=== PATIENT | female | born 1955 | race Caucasian/White ===

== ENCOUNTER 2019-03-17 04:48 | Inpatient (IN) ==
--- NOTE | 2019-02-17 08:00 | History & Physical Report ---
Date of Service February 17, 2019 Date of Surgery: 03-17-19 Assessment & Plan (1) Arthritis of knee, right: Risks and benefits of procedure discussed in detail today, patient would like to proceed with a Right total knee replacement at [facility] as scheduled. will obtain medical clearance prior to surgery as well as obtain PATs at [facility]. Will place on ASA 81mg po bid x 1 month post op, f/u 2 weeks post op for routine post-operative care and x-ray, sooner if having any problems. will make arrangements for HHPT at the time of discharge. At this point in time, has failed conservative measures and would like to proceed with surgical intervention. History of Present Illness Chief Complaint: right knee pain Primary Care Provider: NO PCP Ms Espinal is a 64 year old female who complains of right knee pain, presents for pre-op evaluation prior to a right total knee replacement at [facility]. She presents with pain, crepitus, decreased range of motion, stiffness and instability on the right side. She states that the symptoms have been chronic non-traumatic. The symptoms occur constantly with intermittent worsening. Currently the patient states that the symptoms are moderate-severe. The pain is described as aching and sharp. The symptoms occur continuously. She rates her worst pain as 8/10. She rates her current pain as 4/10. The symptoms are aggravated by repetitive activities and walking. Lavonne states that the symptoms are relieved by no specific activity. In addition to right knee pain the patient is also experiencing difficulty bending, limping and difficulty going to sleep. Patient is taking Meloxicam. She has been treated with a corticosteroid injection on the right side. she has also undergone previous visco series. she has had previous arthroscopic surgery. Pt had a partial menisectomy surgery by Dr. Sumner 2011 in her Right knee. Allergies Allergy/AdvReac Type Severity Reaction Status Date / Time naproxen [From Aleve] Allergy Rash Verified 02/09/19 10:45 Home Medications Home Medications Medication Instructions Recorded Confirmed Type cholecalciferol (vitamin D3) 1,000 unit PO QAM 02/09/19 02/09/19 History [Vitamin D3] coenzyme Q10 [CoQ-10] 100 mg PO QAM 02/09/19 02/09/19 History estradiol 1 packet TRANSDERMAL DAILY 02/09/19 02/09/19 History furosemide 40 mg PO DAILY PRN 02/09/19 02/09/19 History magnesium 250 mg PO QPM 02/09/19 02/09/19 History meloxicam 15 mg PO DAILY PRN 02/09/19 02/09/19 History omeprazole 20 mg PO DAILY PRN 02/09/19 02/09/19 History red yeast rice 1,200 mg PO QAM 02/09/19 02/09/19 History Past Med/Surg History Medical History History of palpitations PT STATES SHE RECENTLY FELT THOUGH HER HEART WAS "RACING OR SKIPPING A BEAT", WAS SEEN AND EVALUATED BY PCP, HAD EKG AND HOLTER MONITOR (BOTH NEGATIVE), PT WILL HAVE ECHO DONE AT [facility] WK OF 02/09/19 PART OF WORK UP. NO RECENT ISSUES. DENIES ANY TRIGGER FOR THIS, NO OTHER SYMPTOMS. Nausea and vomiting after administration of anesthetic agent Osteoarthritis Surgical History History of arthroscopy KNEE SCOPE FOR MENISCUS History of bilateral tubal ligation History of colonoscopy History of esophagogastroduodenoscopy (EGD) History of left oophorectomy History of tonsillectomy Family History Unknown Diabetes Hypertension Social History Preferred Language: Pakistani Communication Ability: Effective Watchmaker Apprentice Required: No Beliefs That Will Affect Care: None Current Living Situation: Spouse Other Information That Helps Us Care for You: No Feels Safe at Home: Yes Safety Concerns: Feels Safe At This Time Smoking Status: Never smoker Cigarettes Per Day: 0 Do You Dip or Chew Tobacco: No Second Hand Exposure: No Tobacco Cessation Education Requested by Patient: No Hx Alcohol Use: No Hx Substance Use: No Review of Systems Review of Systems: All systems reviewed & are unremarkable except as noted in HPI & below Constitutional: no fever, no chills and no sweats Respiratory: no cough and no dyspnea Cardiovascular: no chest pain, no dyspnea and no orthopnea Gastrointestinal: no abdominal pain, no nausea and no vomiting Musculoskeletal: as per Subjective / HPI Physical Exam Physical Exam: Ht: 5ft 8in Wt: 106.6kg BP: 134/76 Pulse: 72 Constitutional: WD/WN, vitals as above no acute distress Respiratory: normal respiratory effort, lungs clear to auscultation no respiratory distress, no labored breathing and does not use accessory muscles Cardiovascular: RRR, no murmur, no edema Gastrointestinal (Abdomen): normal bowel sounds, soft, nontender, no hepatosplenomegaly Musculoskeletal: Right Knee Exam she ambulates with a limp, overall she has valgus alignment, no erythema or ecchymosis, mild effusion, diffuse tenderness to the knee, mild crepitation with motion, rai's negative, Aurora's - lateral positive, Aurora's - medial positive, Posterior drawer- negative, anterior drawer negative, valgus stress negative, varus stress negative, no extensor lag, pain with active range of motion, less pain with passive painful ROM, Range of motion 0/3/110. No pain with active/passive ROM of ankle. Lower extremity strength normal. Lower extremity neuro-vascular is normal Results & Data Diagnostic Findings Radiographs from 01-12-19 showing advanced DJD right knee with complete loss of joint space lateral compartment and patellofemoral joint, showing joint space narrowing osteophyte formation, subchondral sclerosis, overall valgus alignment. no loose bodies.
--- NOTE | 2019-02-17 12:38 | PAT Medication Instructions ---
Medication Instructions Date of Service February 17, 2019 Home Medications cholecalciferol (vitamin D3) 1,000 unit PO QAM coenzyme Q10 [CoQ-10] 100 mg PO QAM estradiol 1 packet TRANSDERMAL DAILY furosemide 40 mg PO DAILY PRN magnesium 250 mg PO QPM meloxicam 15 mg PO DAILY PRN omeprazole 20 mg PO DAILY PRN red yeast rice 1,200 mg PO QAM Continue as directed estradiol 1 packet TRANSDERMAL DAILY (avoid placement near surgical site) ASK your surgeon for instructions meloxicam 15 mg PO DAILY PRN STOP taking 2 weeks before surgery coenzyme Q10 [CoQ-10] 100 mg PO QAM red yeast rice 1,200 mg PO QAM DO NOT take the morning of surgery cholecalciferol (vitamin D3) 1,000 unit PO QAM furosemide 40 mg PO DAILY PRN Take morning of surgery With a small sip of water, OTHERWISE NOTHING TO EAT OR DRINK AFTER MIDNIGHT: omeprazole 20 mg PO DAILY PRN (if needed) Take evening before surgery furosemide 40 mg PO DAILY PRN (if needed) magnesium 250 mg PO QPM omeprazole 20 mg PO DAILY PRN (if needed) Other Notes If you have any questions please call us at [phone] or [phone] or [phone] or [phone]
--- NOTE | 2019-02-17 12:54 | Anesthesiology Consultation ---
Date of Service February 17, 2019 Assessment & Plan (1) Encounter for pre-operative examination: PCP CLEARANCE 02/25 = she is considered to be medically acceptable for planned surgery. Chart Review Chart Review: Acceptable Risk for Surgery and Patient seen in Pre Admission Testing Teaching & Discussion Instructed NPO after midnight before surgery, except medications with 15 cc of water. Medication instructions provided according to the PAT guidelines. History Surgery Operation Date: 03/17/19 07:15 Proposed Procedures p Right Total Knee Arthroplasty - Todd Younger DO Height/Weight Height: 5 ft 8 in Weight: 110.6 kg Allergies Allergy/AdvReac Type Severity Reaction Status Date / Time naproxen [From Aleve] Allergy Rash Verified 02/09/19 10:45 Medications Home Medications Medication Instructions Recorded Confirmed Last Taken cholecalciferol (vitamin D3) 1,000 unit PO QAM 02/09/19 02/09/19 Unknown [Vitamin D3] coenzyme Q10 [CoQ-10] 100 mg PO QAM 02/09/19 02/09/19 Unknown estradiol 1 packet TRANSDERMAL DAILY 02/09/19 02/09/19 Unknown furosemide 40 mg PO DAILY PRN 02/09/19 02/09/19 Unknown magnesium 250 mg PO QPM 02/09/19 02/09/19 Unknown meloxicam 15 mg PO DAILY PRN 02/09/19 02/09/19 Unknown omeprazole 20 mg PO DAILY PRN 02/09/19 02/09/19 Unknown red yeast rice 1,200 mg PO QAM 02/09/19 02/09/19 Unknown Past Medical History Medical History History of palpitations EVALUATED BY PCP, EKG/HOLTER MONITOR/ECHO ALL UNREMARKABLE Nausea and vomiting after administration of anesthetic agent Obesity Osteoarthritis Exercise / Class Metabolic Activity II 4-5 Yardwork/Stairs/Walk up hill (Denies CP or SOB with stairs, does daily) Past Family History Family History Unknown Diabetes Hypertension Past Surgical History Surgical History History of arthroscopy KNEE SCOPE FOR MENISCUS History of bilateral tubal ligation History of colonoscopy History of esophagogastroduodenoscopy (EGD) History of left oophorectomy History of tonsillectomy Past Anesthesia History No Hx of Anesthesia Complications (other than PONV) and No Family Hx of Anest hesia Complications History of PONV No Hx of Motion Sickness and History of PONV (has not had with mroe recent surgeries) Social History Smoking Status: Never smoker Smoking cigarettes per day: 0 Do You Dip or Chew Tobacco: No Hx Alcohol Use: No Alcohol type: other Alcohol Intake Frequency Comment: 0 Hx Substance Use: No substance use type: does not use Review of Systems * Pt denies any recent chest pain, shortness of breath, cough, fever or URI. +palpitations, being worked up by PCP Physical Exam Vital Signs BP: 137/78 P: 71bpm SPO2: 96% RA T: 98.8 F R: 16 ENMT Mouth: no dental restorations, no chipped teeth and no loose teeth Thyromental Distance: > or= 3.5 Finger Breadths (4) Mallampati Class: I Neck normal visual inspection; neck extension not limited Respiratory normal respiratory effort Auscultation: lungs clear to auscultation bilaterally Cardiovascular Rate/Rhythm: regular rate and regular rhythm Heart Sounds: no murmur Vessels: no carotid bruit Testing Laboratory Results 02/17/19 13:06 02/17/19 13:06 02/17/19 02/17/19 02/17/19 13:06 13:06 13:06 PT 10.4 INR 1.0 APTT 26.3 Hemoglobin A1c 5.7 H Urine Color Urine Appearance Urine pH Ur Specific [place] Urine Protein Urine Glucose (UA) Urine Ketones Urine Nitrite Ur Leukocyte Esterase Blood Type B Positive Antibody Screen NEGATIVE 02/17/19 13:06 PT INR APTT Hemoglobin A1c Urine Color Yellow Urine Appearance Clear Urine pH 5.5 Ur Specific [place] 1.016 Urine Protein Negative Urine Glucose (UA) Negative Urine Ketones Negative Urine Nitrite Negative Ur Leukocyte Esterase Negative Blood Type Antibody Screen Electrocardiogram Date: 11/19/18 Findings: + NSR @ (75) Chest X-Ray Date: 02/17/19 Findings: + NAD Echocardiogram Date: 02/11/19 EF: 63% The left ventricle size is normal. No significant valvular disease.
--- NOTE | 2019-02-17 13:31 | XRay Report ---
XR chest Pre-admission PA/Lat CLINICAL HISTORY: pat preoperative evaluation COMPARISON STUDY: No previous studies for comparison. FINDINGS: The bones soft tissues and hemidiaphragms are normal. The cardiomediastinal silhouette is n ormal. The lungs are clear. The pulmonary vasculature is normal. IMPRESSION: Negative chest. The above report was generated using voice recognition software. It may contain grammatical, syntax or spelling errors. Electronically signed by: Jatinder Camilo M.D. 02/17/2019 1:30 PM
[2019-02-17 14:29] LABS: Appearance Urine Clear (Clear); Bilirubin Urine Negative (Negative); Blood Urine Negative (Negative); Color Urine Yellow; Glucose Urine UA Negative (Negative); Ketones Urine Negative (Negative); Leukocyte Esterase Urine Negative (Negative); Nitrite Urine Negative (Negative); Protein Urine Negative (Negative); Specific Gravity Urine 1.016 (1.000-1.030); Urobilinogen Urine Negative (Negative); pH Urine 5.5 (4.5-7.5)
[2019-02-17 14:44] LABS: Partial Thromboplastin Time 26.3 Seconds (21.0-31.0); Prothrombin Time 10.4 Seconds (9.0-12.0)
[2019-02-17 14:46] LABS: Albumin Level 3.6 gm/dl (3.4-5.0); BUN Creatinine Ratio 21.3 (10-20); Creatinine Clr Calc Pharmacy 108.6 ml/min; Est GFR (African American) 107.6; Est GFR (Non-African American) 92.9; Potassium 4.7 mmol/L (3.5-5.1)
[2019-02-17 14:50] LABS: Estimated Average Glucose 117 mg/dl; Hemoglobin A1C 5.7 % (4.5-5.6)
[2019-02-17 15:20] LABS: Basophils # (auto) 0.03 K/uL (0-0.2); Basophils % (auto) 0.5 %; Eosinophils # (auto) 0.15 K/uL (0-0.5); Eosinophils % (auto) 2.4 %; Hematocrit (blood only) 41.8 % (37-47); Hemoglobin 13.9 g/dL (12.0-16.0); Immature Granulocytes # (auto) 0.01 K/uL (0.00-0.02); Immature Granulocytes % (auto) 0.2 %; Lymphocytes # (auto) 1.56 K/uL (1.2-3.4); Lymphocytes % (auto) 25.4 %; Mean Corpuscular Hgb Conc 33.3 g/dL (32-36); Mean Corpuscular Volume 88.9 fL (80-100); Mean Platelet Volume 10.6 fL (7.4-10.4); Monocytes % (auto) 9.8 %; Neutrophils # (auto) 3.79 K/uL (1.4-6.5); Neutrophils % (auto) 61.7 %; Platelet Count 250 K/uL (130-400); RDW Coefficient of Variation 13.1 % (11.5-14.5); RDW Standard Deviation 42.8 fL (36.4-46.3); White Blood Count 6.14 K/uL (4.8-10.8)
[2019-03-17] MEDS ORDERED: ROPIVACAINE 0.5% HCL/PF 150 MG, BUPIVACAINE 0.5% MPF 30 ML, EPINEPHrine 30MG/30ML (OR U... INFIL SCH ×2 (06:00)
[2019-03-17] MEDS ORDERED: GABAPENTIN 300 MG PO SCH (06:00)
[2019-03-17] MEDS ORDERED: METOCLOPRAMIDE HCL 10 MG TABLET PO SCH (06:00)
[2019-03-17] MEDS ORDERED: FAMOTIDINE 20 MG TAB PO SCH (06:00)
[2019-03-17] MEDS ORDERED: ACETAMINOPHEN 500 MG TAB PO SCH (06:00)
[2019-03-17] MEDS ORDERED: TRANEXAMIC ACID 1,000 MG **IV Pre-op IV SCH (06:00)
[2019-03-17] MEDS ORDERED: LR 500ML BOLUS, THEN 15ML/HR IV SCH (06:00)
[2019-03-17] MEDS ORDERED: CEFAZOLIN 2000MG 2,000 MG/15 ML SYR IV SCH (06:00)
[2019-03-17] MEDS ORDERED: dexAMETHasone 4 MG TAB PO SCH (06:00)
[2019-03-17] MEDS ORDERED: CeleBREX 200 MG CAP PO SCH ×2 (06:00→21:00)
[2019-03-17] MEDS ORDERED: BUPIVACAINE 0.5 % 5 MG/1 ML PF 10ML VIAL ONE (06:15)
[2019-03-17] MEDS ORDERED: ROPIVACAINE 0.5% 5 MG/ML 30 ML VIAL ONE (06:15)
[2019-03-17] MEDS ORDERED: TRANEXAMIC ACID 1,000 MG **IV Intra-op IV SCH (06:30)
[2019-03-17] MEDS ORDERED: PROPOFOL IV EMULSION 10 MG/ML 20 ML VIAL IV ONE (06:43)
[2019-03-17] MEDS ORDERED: MIDAZOLAM HCL 1 MG/ML 2ML VIAL ONE (06:43)
[2019-03-17] MEDS ORDERED: LIDOCAINE HCL 2% 2 ML VIAL/AMP(20MG/ML) INFIL ONE (06:43)
[2019-03-17] MEDS ORDERED: BACITRACIN INJ 50,000 UNIT VIAL ONE (07:00)
[2019-03-17] MEDS ORDERED: PHENYLEPHRINE 100MCG/ML 5ML SYR IV PRN (07:02)
[2019-03-17] MEDS ORDERED: ATROPINE SULFATE 0.1 MG/ML 10ML SYR IV PRN (07:02)
[2019-03-17] MEDS ORDERED: ePHEDrine sulfate 50 MG/ML AMP IV PRN (07:02)
[2019-03-17] MEDS ORDERED: ONDANSETRON INJ 2 MG/ML 2 ML VIAL IV PRN ×2 (07:02→09:34)
[2019-03-17] MEDS ORDERED: HYDROmorphone INJ 1 MG/ML SYRINGE IV PRN (07:02)
--- NOTE | 2019-03-17 07:05 | History & Physical Bridge Note ---
Date of Service March 17, 2019 History & Physical Bridge Note I have examined the patient, reviewed the History & Physical and in the interval since the performance of the History & Physical I have noted the following changes of clinical significance: no changes noted
--- NOTE | 2019-03-17 08:59 | Operative Report ---
Post Operative Report Pre & Post Diagnosis Operation Date: 03/17/19 07:50 Pre-Op Diagnosis: RIGHT KNEE OSTEOARTHRITIS Post-Op Diagnosis: RIGHT KNEE OSTEOARTHRITIS Procedure Operation Date: 03/17/19 07:50 Actual Procedures p Right Total Knee Arthroplasty(Right) utilizing Márquez & Nephew journey 2 patient matched total knee arthroplasty size 7 femur 6 tibia 13 polyethylene 32 oval patella- Todd Younger DO Surgeon Todd Younger DO Synthetic Resin Operator Adonay ELAINE Estimated Blood Loss 5 Findings Consistent with Post-Op Diagnosis Patient presents with severe end-stage DJD about the right knee varus alignment subchondral sclerosis marginal osteophytes eburnated bone moderate to large effusion with ligamentous laxity patient with no response to conservative therapy failing all attempts at injections bracing rest presents for total knee arthroplasty Specimens Bone and cartilage Drains Medium bore Hemovac Complications none Disposition Accompanied Patient To Recovery: No Disposition: Recovery Room Indications Patient presents as a 62-year-old female with severe end-stage tricompartmental degenerative joint disease of the right knee she is failed attempts at conservative management including physical therapy anti-inflammatories relative rest activity modification corticosteroid injections Visco supplementation bracing she presents for right total knee arthroplasty above intraoperative findings are noted times surgery Description of Procedure After proper prepping and draping of the Right lower extremity anterior midline incision was made over the region of the extensor extensor mechanism after meticulous hemostasis was obtained and maintained in subcutaneous tissues a medial parapatellar incision was made The patella was subluxed lateralward the medial lateral gutter were cleaned from any hypertrophic synovitis and scar tissue of the distal femoral block was placed and the distal femoral osteotomy cut was made subsequently the chamfers anterior and posterior osteotomy cuts were made utilizing the 4-in-1 block the tibia was subsequently subluxed anteriorward medial and ateral meniscal remnants were excised in their entirety remnants of the anterior and posterior cruciate ligaments were excised in their entirety excellent exposure of the proximal tibia was obtained the tibial osteotomy guide was placed on the proximal tibial osteotomy cut was made once again the knee was irrigated with copious amounts of sterile saline solution the patella was subsequently everted lateralward thickened scar tissue around the patella was removed the patella was subsequently cut utilizing a freehand technique and was drilled prepared for final preparation and placement of patella socially flexion-extension gaps were checked and the equal and symmetric trials were placed to the appropriate femoral and tibial trials with poly-spacer being placed for equal flexion and extension gaps and full range of motion including extension to 0 and flexion to 140 the trial components after having been taken to recovery range of motion was subsequently removed meticulous hemostasis was obtained and maintained subsequently a knee block injection of joint cocktail including ropivacaine 0.5% 150 mg. Bupivacaine 0.5% epinephrine 1-200,030 mL's toradol 30 mg dexamethasone 4 mg ketamine 10 mg clonidine 100 micrograms normal saline solution 30 mg was infiltrated into the soft tissues of the posterior knee medial lateral gutters and periosteal synovium special attention was paid to protect neurovascular structures at all times subsequently trial components having been removed the knee was irrigated with sterile saline solution. debris was removed the proximal tibia was subsequently prepared and was made ready for the placement of the tibial component tibial component was also cemented and tamped into position the femoral component was subsequently placed and cemented in the position the patellar component was subsequently cemented in position because hemostasis once again obtained and maintained wound having been thoroughly irrigated with debridement and debridement lavage was performed as well as a medial parapatellar incision closed with #1 Vicryl in interrupted fashion subcutaneous was closed with #2 Vicryl skin was closed with skin clips. PA-C was necessary for prepping and drapping as well as wound cl osure of deep fascia Sub cutaneous tissue and skin and was necessary for the case. A sterile compressive dressing was placed patient was taken to recovery in stable condition of report dictated by Aren I attest to the content of the Intraoperative Record and any orders documented therein. Any exceptions are noted below. I attest to the content of the Intraoperative Record and any orders documented therein. Any exceptions are noted below.
[2019-03-17] MEDS ORDERED: PANTOprazole 40 MG TAB PO PRN (09:33)
[2019-03-17] MEDS ORDERED: HYDROmorphone INJ 0.5 MG/0.5 ML SYR IV PRN (09:34)
[2019-03-17] MEDS ORDERED: ALUMINUM/MAGNESIUM SUSP 30 ML UDC PO PRN (09:34)
[2019-03-17] MEDS ORDERED: MAGNESIUM HYDROXIDE SUSP 30 ML UDC PO PRN (09:34)
[2019-03-17] MEDS ORDERED: BISACODYL 10 MG SUPP PR PRN (09:34)
[2019-03-17] MEDS ORDERED: NALOXONE HCL 0.4 MG/1 ML VIAL/CARP IV PRN (09:34)
[2019-03-17] MEDS ORDERED: METOCLOPRAMIDE HCL INJ 5 MG/ML 2 ML VIAL IV PRN (09:34)
--- NOTE | 2019-03-17 09:57 | XRay Report ---
XR knee RT 2V routine CLINICAL HISTORY: Postoperative evaluation. COMPARISON: None FINDINGS: Alignment of the total right knee arthroplasty is anatomic. There is no fracture or unexpe cted radiopaque foreign body. A 4.3 cm chondroid lesion within the distal right femoral metaphysis is noted. Although indeterminate, this favors an enchondroma. IMPRESSION: Expected findings following total right knee arthroplasty. Electronically signed by: Rudolph Figueredo M.D. 03/17/2019 9:55 AM
[2019-03-17] MEDS: SODIUM CHLORIDE 0.9% 1000ML 1,000 ML IV SCH ×2 (10:59→21:55)
[2019-03-17] MEDS: KETOROLAC 30 MG/ML VIAL IV SCH ×3 (11:34→23:59)
--- NOTE | 2019-03-17 11:35 | Anesthesiology Progress Note ---
Date of Service March 17, 2019 Anesthesia Post Procedure Vital Signs Vital Signs: Temp Pulse Pulse Pulse Pulse Resp BP 03/17/19 11:26 66 16 03/17/19 11:04 60 16 03/17/19 10:30 36.5 C 54 L 15 03/17/19 10:16 55 L 15 133/71 03/17/19 10:15 57 L 15 03/17/19 10:11 36.4 C L 53 L 22 138/69 03/17/19 10:10 36.2 C L 59 L 14 03/17/19 10:06 53 L 14 132/69 03/17/19 10:05 54 L 13 03/17/19 10:01 62 16 120/72 03/17/19 10:00 59 L 16 03/17/19 09:58 50 L 17 03/17/19 09:57 56 L 17 140/75 03/17/19 09:55 57 L 20 03/17/19 09:51 56 L 16 129/75 03/17/19 09:50 55 L 12 03/17/19 09:46 54 L 17 139/69 03/17/19 09:45 66 18 03/17/19 09:41 66 18 135/75 03/17/19 09:40 70 20 03/17/19 09:36 58 L 15 148/123 H 03/17/19 09:35 62 20 03/17/19 09:33 36.4 C L 79 62 20 148/62 H 03/17/19 05:35 36.8 C 63 20 BP Pulse Ox 03/17/19 11:26 129/78 100 03/17/19 11:04 143/75 H 99 03/17/19 10:30 146/81 H 99 03/17/19 10:16 98 03/17/19 10:15 98 03/17/19 10:11 99 03/17/19 10:10 97 03/17/19 10:06 96 03/17/19 10:05 96 03/17/19 10:01 97 03/17/19 10:00 96 03/17/19 09:58 98 03/17/19 09:57 98 03/17/19 09:55 97 03/17/19 09:51 98 03/17/19 09:50 96 03/17/19 09:46 98 03/17/19 09:45 96 03/17/19 09:41 96 03/17/19 09:40 98 03/17/19 09:36 99 03/17/19 09:35 98 03/17/19 09:33 148/62 H 97 03/17/19 05:35 161/85 H 98 Pain Intensity Right Knee: Pain Intensity: 0 Transfer of Care Handoff Completed per policy Notes Mental Status: alert / awake / arousable Patient Amnestic to Procedure: Yes Nausea / Vomiting: adequately controlled Pain: adequately controlled Airway Patency, RR, SpO2: stable & adequate BP & HR: stable & adequate Hydration State: stable & adequate Anesthetic Complications: no major complications apparent
[2019-03-17] MEDS: ACETAMINOPHEN 500 MG TAB PO SCH ×2 (13:35→21:03)
[2019-03-17] MEDS: CEFAZOLIN 2000MG 2,000 MG/15 ML SYR IV SCH ×2 (15:33→23:59)
[2019-03-17] MEDS: OXYCODONE HCL IR 5 MG TAB (IMMEDIATE RELEASE) PO PRN (16:25)
[2019-03-17] MEDS: FERROUS GLUCONATE 324 MG TAB PO SCH (17:22)
[2019-03-17] MEDS: ASCORBIC ACID 500 MG TAB PO SCH (17:22)
[2019-03-17] MEDS: SENNA 8.6 MG TAB PO SCH (20:36)
[2019-03-17] MEDS: ASPIRIN 81 MG ECTAB PO SCH (20:36)
[2019-03-17] MEDS: DOCUSATE SODIUM 100 MG CAP PO SCH (20:36)
[2019-03-17] MEDS: MAGNESIUM OXIDE 400 MG TAB PO SCH (20:36)
[2019-03-18] MEDS: ACETAMINOPHEN 500 MG TAB PO SCH ×3 (06:07→17:45)
[2019-03-18] MEDS: KETOROLAC 30 MG/ML VIAL IV SCH (06:07)
[2019-03-18 06:48] LABS: Hematocrit (blood only) 37.4 % (37-47); Hemoglobin 12.1 g/dL (12.0-16.0); Mean Corpuscular Hgb Conc 32.4 g/dL (32-36); Mean Corpuscular Volume 89.7 fL (80-100); Mean Platelet Volume 9.7 fL (7.4-10.4); Platelet Count 226 K/uL (130-400); RDW Coefficient of Variation 13.4 % (11.5-14.5); RDW Standard Deviation 43.9 fL (36.4-46.3); Red Blood Count 4.17 M/uL (4.2-5.4); White Blood Count 12.21 K/uL (4.8-10.8)
[2019-03-18 07:15] LABS: BUN Creatinine Ratio 16.9 (10-20); Calcium 8.8 mg/dl (8.5-10.1); Est GFR (African American) 109.2; Est GFR (Non-African American) 94.2; Potassium 3.9 mmol/L (3.5-5.1)
[2019-03-18] MEDS ORDERED: dexAMETHasone 10 MG in SYRINGE 0 ML IV SCH (08:00)
--- NOTE | 2019-03-18 08:04 | Anesthesiology Progress Note ---
Date of Service March 18, 2019 Anesthesia Post Procedure Vital Signs Vital Signs: Temp Pulse Pulse Pulse Pulse Resp BP 03/18/19 07:49 36.7 C 74 16 03/18/19 03:16 36.7 C 70 14 03/17/19 23:01 36.8 C 75 14 03/17/19 19:12 36.7 C 82 16 03/17/19 15:02 36.7 C 70 16 03/17/19 13:30 36.6 C 78 16 03/17/19 12:25 69 16 03/17/19 11:26 66 16 03/17/19 11:04 60 16 03/17/19 10:30 36.5 C 54 L 15 03/17/19 10:16 55 L 15 133/71 03/17/19 10:15 57 L 15 03/17/19 10:11 36.4 C L 53 L 22 138/69 03/17/19 10:10 36.2 C L 59 L 14 03/17/19 10:06 53 L 14 132/69 03/17/19 10:05 54 L 13 03/17/19 10:01 62 16 120/72 03/17/19 10:00 59 L 16 03/17/19 09:58 50 L 17 03/17/19 09:57 56 L 17 140/75 03/17/19 09:55 57 L 20 03/17/19 09:51 56 L 16 129/75 03/17/19 09:50 55 L 12 03/17/19 09:46 54 L 17 139/69 03/17/19 09:45 66 18 03/17/19 09:41 66 18 135/75 03/17/19 09:40 70 20 03/17/19 09:36 58 L 15 148/123 H 03/17/19 09:35 62 20 03/17/19 09:33 36.4 C L 79 62 20 148/62 H BP Pulse Ox 03/18/19 07:49 141/80 H 99 03/18/19 03:16 128/66 97 03/17/19 23:01 143/67 H 97 03/17/19 19:12 139/70 96 03/17/19 15:02 121/72 96 03/17/19 13:30 130/74 96 03/17/19 12:25 116/54 L 99 03/17/19 11:26 129/78 100 03/17/19 11:04 143/75 H 99 03/17/19 10:30 146/81 H 99 03/17/19 10:16 98 03/17/19 10:15 98 03/17/19 10:11 99 03/17/19 10:10 97 03/17/19 10:06 96 03/17/19 10:05 96 03/17/19 10:01 97 03/17/19 10:00 96 03/17/19 09:58 98 03/17/19 09:57 98 03/17/19 09:55 97 03/17/19 09:51 98 03/17/19 09:50 96 03/17/19 09:46 98 03/17/19 09:45 96 03/17/19 09:41 96 03/17/19 09:40 98 03/17/19 09:36 99 03/17/19 09:35 98 03/17/19 09:33 148/62 H 97 Pain Intensity Right Knee: Pain Intensity: 5 Notes Mental Status: alert / awake / arousable and participated in evaluation Nausea / Vomiting: adequately controlled Pain: adequately controlled Airway Patency, RR, SpO2: stable & adequate BP & HR: stable & adequate Hydration State: stable & adequate Neuraxial Anesthesia: sensory block resolved Anesthetic Complications: Pt Satisfied with anesthetic care
[2019-03-18] MEDS: ASPIRIN 81 MG ECTAB PO SCH ×2 (08:10→20:15)
[2019-03-18] MEDS: CHOLECALCIFEROL 1,000 UNITS TAB PO SCH (08:10)
[2019-03-18] MEDS: FERROUS GLUCONATE 324 MG TAB PO SCH ×2 (08:10→18:05)
[2019-03-18] MEDS: DOCUSATE SODIUM 100 MG CAP PO SCH ×2 (08:10→20:15)
[2019-03-18] MEDS: MULTIVITAMIN TAB PO SCH (08:10)
[2019-03-18] MEDS: ASCORBIC ACID 500 MG TAB PO SCH ×2 (08:11→18:05)
[2019-03-18] MEDS: OXYCODONE HCL IR 5 MG TAB (IMMEDIATE RELEASE) PO PRN ×3 (08:28→20:15)
--- NOTE | 2019-03-18 09:06 | Orthopedic Progress Note ---
Date of Service March 18, 2019 Assessment & Plan (1) Status post right knee replacement: 64 yo female stable POD #1 s/p right TKA 1. Med management 2. DVT prophylaxis- ASA, SCDs 3. PT/OT 4. D/C planning- home w/ OPPT Subjective Pt resting in bed, pain controlled, denies complaints Physical Exam Physical Exam: Toes mobile, N/V/I, dressing and drain in place Results & Data Vital Signs (Past 12 Hours) Vital Signs Temp Pulse Pulse Resp BP Pulse Ox 03/18/19 07:49 36.7 C 74 16 141/80 H 99 03/18/19 03:16 36.7 C 70 14 128/66 97 03/17/19 23:01 36.8 C 75 14 143/67 H 97 Laboratory Results 03/18/19 03/18/19 Range/Units 06:28 06:28 WBC 12.21 H (4.8-10.8) K/uL RBC 4.17 L (4.2-5.4) M/uL Hgb 12.1 (12.0-16.0) g/dL Hct 37.4 (37-47) % MCV 89.7 (80-100) fL MCH 29.0 (25-34) pg MCHC 32.4 (32-36) g/dL RDW Std Deviation 43.9 (36.4-46.3) fL RDW Coeff of William 13.4 (11.5-14.5) % Plt Count 226 (130-400) K/uL MPV 9.7 (7.4-10.4) fL Sodium 143 (136-145) mmol/L Potassium 3.9 (3.5-5.1) mmol/L Chloride 112 H (98-107) mmol/L Carbon Dioxide 25 (21-32) mmol/L Anion Gap 6.0 (3-11) BUN 11 (7-18) mg/dl Creatinine 0.67 (0.6-1.2) mg/dl Est Cr Clr Drug Dosing 112.0 ml/min Est GFR ( Amer) 109.2 Est GFR (Non-Af Amer) 94.2 BUN/Creatinine Ratio 16.9 (10-20) Glucose 117 H (70-99) mg/dl Calcium 8.8 (8.5-10.1) mg/dl
[2019-03-18] MEDS ORDERED: MELOXICAM 7.5 MG TAB PO PRN (12:00)
[2019-03-18] MEDS: SENNA 8.6 MG TAB PO SCH (20:15)
[2019-03-18] MEDS: MAGNESIUM OXIDE 400 MG TAB PO SCH (20:16)
[2019-03-19] MEDS ORDERED: ACETAMINOPHEN 500 MG TAB PO ONE
[2019-03-19] MEDS: ACETAMINOPHEN 500 MG TAB PO SCH (06:34)
[2019-03-19] MEDS: OXYCODONE HCL IR 5 MG TAB (IMMEDIATE RELEASE) PO PRN (07:31)
[2019-03-19] MEDS: ASPIRIN 81 MG ECTAB PO SCH (07:31)
[2019-03-19] MEDS: CHOLECALCIFEROL 1,000 UNITS TAB PO SCH (07:32)
[2019-03-19] MEDS: ASCORBIC ACID 500 MG TAB PO SCH (07:32)
[2019-03-19] MEDS: DOCUSATE SODIUM 100 MG CAP PO SCH (07:33)
[2019-03-19] MEDS: FERROUS GLUCONATE 324 MG TAB PO SCH (07:33)
[2019-03-19] MEDS: MULTIVITAMIN TAB PO SCH (07:33)
--- NOTE | 2019-03-19 07:54 | Orthopedic Progress Note ---
Date of Service March 19, 2019 Assessment & Plan (1) Status post right knee replacement: 64 yo female stable POD #2 s/p right TKA 1. Med management 2. DVT prophylaxis- ASA, SCDs 3. PT/OT D/C home after PT today Subjective POD #2 s/p Right TKA Pt resting in bed, pain controlled, denies complaints Physical Exam Physical Exam: Vital Signs Temp 36.9 C 03/19/19 05:42 Pulse 70 03/19/19 05:42 Resp 14 03/19/19 05:42 BP 149/79 H 03/19/19 05:42 Pulse Ox 98 03/19/19 05:42 Intake & Output 03/18/19 03/19/19 03/19/19 18:59 06:59 18:59 Intake Total 935 / 1135 200 / 1135 Output Total 125 / 125 Balance 935 / 1010 75 / 1010 Intake: Oral 935 / 1135 200 / 1135 Output: Drain Output 125 / 125 Right Knee Hem ovac 125 / 125 Other: # Unmeasured Voi ds 4 3 Constitutional: WD/WN, vitals as above no acute distress Musculoskeletal: right knee: NVDI, calf SNT, negative kermit sign. DP palpable, able to wiggle toes/ankle movement without difficulty. zipline dressing clean dry and intact. expected post-operative bruising noted Results & Data Vital Signs (Past 12 Hours) Vital Signs Temp Pulse Resp BP BP Pulse Ox 03/19/19 05:42 36.9 C 70 14 149/79 H 98 03/18/19 23:11 36.7 C 69 14 133/75 98
--- NOTE | 2019-03-24 14:02 | Discharge Summary ---
CHIEF COMPLAINT: Right knee pain. Please see complete history and physical examination. HOSPITAL COURSE: The patient underwent right total knee arthroplasty without complication. She tolerated the procedure well and was discharged to recovery room in stable condition. Her postop course was relatively uneventful. Her postoperative pain was reasonably well controlled with a combination of spinal anesthesia, adductor canal block, intraoperative joint injection, IV, and oral pain medications. She was started on aspirin for DVT prophylaxis. She was utilized NICO stockings and SCDs for additional prophylaxis. Her dressing and drain were discontinued on postoperative day 2. A new postoperative dressing was applied. She tolerated the postop physical therapy reasonable well where she was bending her knee and ambulating appropriately. She was discharged home on postoperative day 2. She will continue her physical therapy as an outpatient. She will continue her aspirin for DVT prophylaxis and follow up in our office in approximately 10-14 days for initial postop evaluation.
== END 2019-03-19 11:58 | disposition home or self-care (01) | DRG 470 ==
LOC: ASU 04:48 → 3E 10:35

== ENCOUNTER 2019-10-13 07:20 | Inpatient (IN) ==
--- NOTE | 2019-09-03 22:49 | PAT Medication Instructions ---
Medication Instructions Date of Service September 03, 2019 Home Medications furosemide 40 mg PO DAILY PRN magnesium 250 mg PO QPM omeprazole 20 mg PO DAILY PRN diclofenac sodium [Voltaren] 2 g TOPICAL QID PRN estradiol 1 g VAGINAL 2XWK Continue as directed estradiol 1 g VAGINAL 2XWK ASK your surgeon for instructions diclofenac sodium [Voltaren] 2 g TOPICAL QID PRN DO NOT take the morning of surgery furosemide 40 mg PO DAILY PRN Take morning of surgery With a small sip of water, OTHERWISE NOTHING TO EAT OR DRINK AFTER MIDNIGHT: omeprazole 20 mg PO DAILY PRN (if needed) Take evening before surgery furosemide 40 mg PO DAILY PRN (if needed) magnesium 250 mg PO QPM omeprazole 20 mg PO DAILY PRN (if needed) Other Notes If you have any questions please call us at [phone] or [phone] or [phone] or [phone]
--- NOTE | 2019-09-04 13:39 | Anesthesiology Consultation ---
Date of Service September 04, 2019 Assessment & Plan (1) Encounter for pre-operative examination: TKA 03/19/19 = SAB x 1 attempt, no issues noted. Chart Review Chart Review: Acceptable Risk for Surgery and Patient seen in Pre Admission Testing Teaching & Discussion Instructed NPO after midnight before surgery, except medications with 15 cc of water. Medication instructions provided according to the PAT guidelines. History Surgery Operation Date: 10/13/19 14:45 Proposed Procedures p Left Total Knee Arthroplasty - Todd Younger DO Height/Weight Height: 5 ft 8 in Weight: 97.1 kg Allergies Allergy/AdvReac Type Severity Reaction Status Date / Time oxycodone Allergy Intermediate Hives Verified 09/02/19 12:24 naproxen [From Aleve] Allergy Mild Rash Verified 09/02/19 12:24 Medications Home Medications Medication Instructions Recorded Confirmed Last Taken furosemide 40 mg PO DAILY PRN 02/09/19 09/02/19 03/03/19 magnesium 250 mg PO QPM 02/09/19 09/02/19 03/03/19 omeprazole 20 mg PO DAILY PRN 02/09/19 09/02/19 03/15/19 diclofenac sodium [Voltaren] 2 g TOPICAL QID PRN 09/02/19 09/02/19 Unknown estradiol 1 g VAGINAL 2XWK 09/02/19 09/02/19 Unknown Past Medical History Medical History History of palpitations EVALUATED BY PCP, EKG/HOLTER MONITOR/ECHO ALL UNREMARKABLE Obesity Osteoarthritis Prolapsed bladder WEARS PESARY Exercise / Class Metabolic Activity II 4-5 Yardwork/Stairs/Walk up hill (Denies CP or SOB with 1 FOS) Past Family History Family History (Updated 09/02/19 @ 12:28 by Viviana Velez RN) Unknown Hypertension Mother Diabetes Grandfather (Maternal) Diabetes Grandmother (Maternal) Diabetes Past Surgical History Surgical History Family history of reaction to anesthesia SON-PONV History of arthroscopy RT KNEE History of bilateral tubal ligation History of colonoscopy History of esophagogastroduodenoscopy (EGD) History of left oophorectomy History of tonsillectomy History of total knee replacement RT Nausea and vomiting after administration of anesthetic agent Past Anesthesia History No Hx of Anesthesia Complications (other than PONV) and No Family Hx of Anesthesia Complications (Son = PONV) History of PONV No Hx of Motion Sickness and History of PONV Social History Smoking Status: Never smoker Do You Dip or Chew Tobacco: No Hx Alcohol Use: No Alcohol type: other Hx Substance Use: No substance use type: does not use Review of Systems Pt denies any recent chest pain, shortness of breath, palpitations, cough, fever or URI. Physical Exam Vital Signs BP: 136/83 P: 79bpm SPO2: 98% RA T: 98.7 F R: 16 ENMT Mouth: no dental restorations, no chipped teeth and no loose teeth Thyromental Distance: > or= 3.5 Finger Breadths (3.5) Mallampati Class: I Neck normal visual inspection; neck extension not limited Respiratory normal respiratory effort Auscultation: lungs clear to auscultation bilaterally Cardiovascular Rate/Rhythm: regular rate and regular rhythm Heart Sounds: + murmur (I/ systolic RSB) Vessels: no carotid bruit Testing Laboratory Results 09/04/19 13:50 09/04/19 13:50 PT 10.5 Seconds (9.0-12.0) 09/04/19 13:50 INR 1.0 (0.9-1.1) 09/04/19 13:50 APTT 26.5 Seconds (21.0-31.0) 09/04/19 13:50 Urine Color Yellow 09/04/19 Unknown Urine Appearance Clear (Clear) 09/04/19 Unknown Urine pH 6.5 (4.5-7.5) 09/04/19 Unknown Ur Specific [place] 1.019 (1.000-1.030) 09/04/19 Unknown Urine Protein Negative (Negative) 09/04/19 Unknown Urine Glucose (UA) Negative (Negative) 09/04/19 Unknown Urine Ketones 1+ (Negative) H 09/04/19 Unknown Urine Nitrite Negative (Negative) 09/04/19 Unknown Ur Leukocyte Esterase Negative (Negative) 09/04/19 Unknown Electrocardiogram Date: 11/19/18 Findings: + NSR @ (75bpm) Chest X-Ray Date: 02/17/19 Findings: + NAD
[2019-09-04 15:28] LABS: Appearance Urine Clear (Clear); Bilirubin Urine Negative (Negative); Blood Urine Negative (Negative); Color Urine Yellow; Glucose Urine UA Negative (Negative); Ketones Urine 1+ (Negative); Leukocyte Esterase Urine Negative (Negative); Nitrite Urine Negative (Negative); Protein Urine Negative (Negative); Specific Gravity Urine 1.019 (1.000-1.030); Urobilinogen Urine Negative (Negative); pH Urine 6.5 (4.5-7.5)
[2019-09-04 15:28] LABS: Basophils # (auto) 0.05 K/uL (0-0.2); Eosinophils # (auto) 0.15 K/uL (0-0.5); Eosinophils % (auto) 3.1 %; Hematocrit (blood only) 42.5 % (37-47); Hemoglobin 13.9 g/dL (12.0-16.0); Lymphocytes # (auto) 1.24 K/uL (1.2-3.4); Lymphocytes % (auto) 25.3 %; Mean Corpuscular Hemoglobin 28.8 pg (25-34); Mean Corpuscular Hgb Conc 32.7 g/dL (32-36); Monocytes % (auto) 8.2 %; Neutrophils # (auto) 3.06 K/uL (1.4-6.5); Neutrophils % (auto) 62.4 %; Platelet Count 248 K/uL (130-400); RDW Coefficient of Variation 14.3 % (11.5-14.5); RDW Standard Deviation 46.4 fL (36.4-46.3); Red Blood Count 4.83 M/uL (4.2-5.4)
[2019-09-04 15:40] LABS: Albumin Level 3.5 gm/dl (3.4-5.0); BUN Creatinine Ratio 22.6 (10-20); Calcium 9.6 mg/dl (8.5-10.1); Creatinine Clr Calc Pharmacy 92.9 ml/min; Est GFR (African American) 95.9; Est GFR (Non-African American) 82.8; Potassium 4.5 mmol/L (3.5-5.1)
[2019-09-04 15:42] LABS: Partial Thromboplastin Time 26.5 Seconds (21.0-31.0); Prothrombin Time 10.5 Seconds (9.0-12.0)
[2019-09-05 06:44] LABS: Estimated Average Glucose 114 mg/dl; Hemoglobin A1C 5.6 % (4.5-5.6)
--- NOTE | 2019-09-14 09:08 | History & Physical Report ---
Date of Service September 14, 2019 Date of surgery: 10/13/19 Assessment & Plan (1) Osteoarthritis of left knee: Risks and benefits of procedure discussed in detail today, patient would like to proceed with a Left total knee replacement at [facility] as scheduled. 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 will obtain Cardiac clearance from Dr Salas prior to surgery as well as obtain PATs at [facility]. Will place on ASA 81mg po bid x 1 month, f/u 2 weeks post op for routine post-operative care and x-ray, sooner if having any problems. will make arrangements for OPPT at [place] at the time of discharge. At this point in time, has failed conservative measures and would like to proceed with surgical intervention. she had a reaction with Oxycodone previously but did tolerate Barbeau. History of Present Illness Chief Complaint: left knee pain Primary Care Provider: NO PCP Ms Espinal is a 64 year old female who complains of left knee pain, presents for pre-op prior to a left total knee replacement at [facility]. She presents with pain and stiffness on the left side. She states that the symptoms have been chronic non-traumatic. The symptoms occur constantly with intermittent worsening. Currently the patient states that the symptoms are moderate. The pain is described as aching and sharp. She rates her current pain as 5/10. The symptoms are aggravated by daily activities, ascending stairs, descending stairs, first steps while awake, jumping, kneeling, movement, walking and standing. she has had prior cortisone injections as well as visco without relief. Allergies Allergy/AdvReac Type Severity Reaction Status Date / Time oxycodone Allergy Intermediate Hives Verified 09/02/19 12:24 naproxen [From Aleve] Allergy Mild Rash Verified 09/02/19 12:24 Home Medications Home Medications Medication Instructions Recorded Confirmed Type furosemide 40 mg PO DAILY PRN 02/09/19 09/02/19 History magnesium 250 mg PO QPM 02/09/19 09/02/19 History omeprazole 20 mg PO DAILY PRN 02/09/19 09/02/19 History diclofenac sodium [Voltaren] 2 g TOPICAL QID PRN 09/02/19 09/02/19 History estradiol 1 g VAGINAL 2XWK 09/02/19 09/02/19 History Past Med/Surg History Medical History History of palpitations EVALUATED BY PCP, EKG/HOLTER MONITOR/ECHO ALL UNREMARKABLE Obesity Osteoarthritis Prolapsed bladder WEARS PESARY Surgical History Family history of reaction to anesthesia SON-PONV History of arthroscopy RT KNEE History of bilateral tubal ligation History of colonoscopy History of esophagogastroduodenoscopy (EGD) History of left oophorectomy History of tonsillectomy History of total knee replacement RT Nausea and vomiting after administration of anesthetic agent Family History (Updated 09/02/19 @ 12:28 by Viviana Velez RN) Unknown Hypertension Mother Diabetes Grandfather (Maternal) Diabetes Grandmother (Maternal) Diabetes Social History Preferred Language: French Communication Ability: Effective Beam Sealer Required: No Beliefs That Will Affect Care: None marital status: Current Living Situation: Spouse Feels Safe at Home: Yes Safety Concerns: Feels Safe At This Time Smoking Status: Never smoker Do You Dip or Chew Tobacco: No ; Second Hand Exposure: No ; Tobacco Cessation Education Requested by Patient: No Hx Alcohol Use: No Hx Substance Use: No Review of Systems Review of Systems: All systems reviewed & are unremarkable except as noted in HPI & below Constitutional: no fever, no chills and no sweats Respiratory: no cough and no dyspnea Cardiovascular: no chest pain, no dyspnea and no orthopnea Gastrointestinal: no abdominal pain, no nausea and no vomiting Musculoskeletal: as per Subjective / HPI Physical Exam Physical Exam: Ht: 5ft 8in Wt: 97kg BP: 110/72 Pulse: 80 Constitutional: WD/WN, vitals as above no acute distress Respiratory: normal respiratory effort, lungs clear to auscultation no respiratory distress, no labored breathing and does not use accessory muscles Cardiovascular: RRR, no murmur, no edema Gastrointestinal (Abdomen): normal bowel sounds, soft, nontender, no hepatosplenomegaly Musculoskeletal: Knee: + knee abnormal to inspection (Left knee), + effusion (+1 effusion), + surgical incision (well healed portals), + limited ROM of knee (ROM 0/3/110), + knee ROM with crepitation, + joint line tenderness (medial joint line) and + Aurora's sign positive; no deformity, no skin erythema, no ecchymosis, no valgus laxity, no varus laxity, anterior drawer test negative, Ronny's sign negative and pivot shift test negative Results & Data Laboratory Results Laboratory Results WBC 4.90 K/uL (4.8-10.8) 09/04/19 13:50 RBC 4.83 M/uL (4.2-5.4) 09/04/19 13:50 Hgb 13.9 g/dL (12.0-16.0) 09/04/19 13:50 Hct 42.5 % (37-47) 09/04/19 13:50 MCV 88.0 fL (80-100) 09/04/19 13:50 MCH 28.8 pg (25-34) 09/04/19 13:50 MCHC 32.7 g/dL (32-36) 09/04/19 13:50 RDW Std Deviation 46.4 fL (36.4-46.3) H 09/04/19 13:50 RDW Coeff of William 14.3 % (11.5-14.5) 09/04/19 13:50 Plt Count 248 K/uL (130-400) 09/04/19 13:50 MPV 10.0 fL (7.4-10.4) 09/04/19 13:50 Immature Gran % (Auto) 0.0 % 09/04/19 13:50 Neut % (Auto) 62.4 % 09/04/19 13:50 Lymph % (Auto) 25.3 % 09/04/19 13:50 Cavalier % (Auto) 8.2 % 09/04/19 13:50 Eos % (Auto) 3.1 % 09/04/19 13:50 Baso % (Auto) 1.0 % 09/04/19 13:50 Immature Gran # (Auto) 0.00 K/uL (0.00-0.02) 09/04/19 13:50 Neut # (Auto) 3.06 K/uL (1.4-6.5) 09/04/19 13:50 Lymph # (Auto) 1.24 K/uL (1.2-3.4) 09/04/19 13:50 Cavalier # (Auto) 0.40 K/uL (0.11-0.59) 09/04/19 13:50 Eos # (Auto) 0.15 K/uL (0-0.5) 09/04/19 13:50 Baso # (Auto) 0.05 K/uL (0-0.2) 09/04/19 13:50 PT 10.5 Seconds (9.0-12.0) 09/04/19 13:50 INR 1.0 (0.9-1.1) 09/04/19 13:50 APTT 26.5 Seconds (21.0-31.0) 09/04/19 13:50 PTT Ratio 1.0 09/04/19 13:50 Sodium 138 mmol/L (136-145) 09/04/19 13:50 Potassium 4.5 mmol/L (3.5-5.1) 09/04/19 13:50 Chloride 106 mmol/L (98-107) 09/04/19 13:50 Carbon Dioxide 27 mmol/L (21-32) 09/04/19 13:50 Anion Gap 5.0 (3-11) 09/04/19 13:50 BUN 17 mg/dl (7-18) 09/04/19 13:50 Creatinine 0.77 mg/dl (0.6-1.2) 09/04/19 13:50 Est Cr Clr Drug Dosing 92.9 ml/min 09/04/19 13:50 Est GFR ( Amer) 95.9 09/04/19 13:50 Est GFR (Non-Af Amer) 82.8 09/04/19 13:50 BUN/Creatinine Ratio 22.6 (10-20) H 09/04/19 13:50 Glucose 96 mg/dl (70-99) 09/04/19 13:50 Estimat Average Glucose 114 mg/dl 09/04/19 13:50 Hemoglobin A1c 5.6 % (4.5-5.6) 09/04/19 13:50 Calcium 9.6 mg/dl (8.5-10.1) 09/04/19 13:50 Albumin 3.5 gm/dl (3.4-5.0) 09/04/19 13:50 Urine Color Yellow 09/04/19 Unknown Urine Appearance Clear (Clear) 09/04/19 Unknown Urine pH 6.5 (4.5-7.5) 09/04/19 Unknown Ur Specific [place] 1.019 (1.000-1.030) 09/04/19 Unknown Urine Protein Negative (Negative) 09/04/19 Unknown Urine Glucose (UA) Negative (Negative) 09/04/19 Unknown Urine Ketones 1+ (Negative) H 09/04/19 Unknown Urine Blood Negative (Negative) 09/04/19 Unknown Urine Nitrite Negative (Negative) 09/04/19 Unknown Urine Bilirubin Negative (Negative) 09/04/19 Unknown Urine Urobilinogen Negative (Negative) 09/04/19 Unknown Ur Leukocyte Esterase Negative (Negative) 09/04/19 Unknown Blood Type B Positive 09/04/19 13:50 Antibody Screen NEGATIVE 09/04/19 13:50 Diagnostic Findings Left Knee X-ray 08-03-19 confirms advanced degenerative changes to the left knee, greatest medial compartments and patellofemoral joint, showing joint space narrowing, osteophyte formation and subchondral sclerosis. no acute bony pathology noted.
[~2019-10-13 07:20] MED LIST: ACETAMINOPHEN 500 MG TAB PO SCH; BUPIVACAINE 0.5 % 5 MG/1 ML PF 10ML VIAL ONE; CEFAZOLIN 2000MG 2,000 MG/15 ML SYR IV SCH; FAMOTIDINE 20 MG TAB PO SCH; GABAPENTIN 600 MG DOSE PO SCH; LR 500ML BOLUS, THEN 15ML/HR IV SCH; METOCLOPRAMIDE HCL 10 MG TABLET PO SCH; ROPIVACAINE 0.5% 5 MG/ML 30 ML VIAL ONE; ROPIVACAINE 0.5% HCL/PF 150 MG, BUPIVACAINE 0.5% MPF 30 ML, EPINEPHrine 30MG/30ML (OR U... INFIL SCH; TRANEXAMIC ACID 1,000 MG **IV Intra-op IV SCH; TRANEXAMIC ACID 1,000 MG **IV Pre-op IV SCH; dexAMETHasone 4 MG TAB PO SCH
[2019-10-13] MEDS ORDERED: PROPOFOL IV EMULSION 10 MG/ML 20 ML VIAL IV ONE ×2 (08:44→10:55)
[2019-10-13] MEDS ORDERED: fentaNYL citrate 100 MCG/2 ML VIAL ONE (08:44)
[2019-10-13] MEDS ORDERED: LIDOCAINE HCL 2% 2 ML VIAL/AMP(20MG/ML) INFIL ONE (08:44)
[2019-10-13] MEDS ORDERED: MIDAZOLAM HCL 1 MG/ML 2ML VIAL ONE ×2 (08:45)
[2019-10-13] MEDS ORDERED: ePHEDrine sulfate 50 MG/ML AMP IV PRN (09:26)
[2019-10-13] MEDS ORDERED: ATROPINE SULFATE 0.1 MG/ML 10ML SYR IV PRN (09:26)
[2019-10-13] MEDS ORDERED: ORTHO JOINT ANESTHETIC ONE (09:46)
[2019-10-13] MEDS ORDERED: BACITRACIN INJ 50,000 UNIT VIAL ONE (09:46)
--- NOTE | 2019-10-13 09:57 | History & Physical Bridge Note ---
Date of Service October 13, 2019 History & Physical Bridge Note I have examined the patient, reviewed the History & Physical and in the interval since the performance of the History & Physical I have noted the following changes of clinical significance: no changes noted
[2019-10-13] MEDS ORDERED: CEFAZOLIN 2000MG 2,000 MG/15 ML SYR IV ONE (10:20)
[2019-10-13] MEDS ORDERED: ONDANSETRON INJ 2 MG/ML 2 ML VIAL ONE (10:55)
[2019-10-13] MEDS ORDERED: DEXAMETHASONE SOD INJ 4 MG/ML VIAL ONE (10:55)
--- NOTE | 2019-10-13 11:11 | Operative Report ---
Post Operative Report Pre & Post Diagnosis Operation Date: 10/13/19 09:55 Pre-Op Diagnosis: Unilateral Primary Osteoarthritis, Left Knee Post-Op Diagnosis: Unilateral Primary Osteoarthritis, Left Knee I identified the patient and participated in the time-out.: Yes Procedure Operation Date: 10/13/19 09:55 Actual Procedures p Left Total Knee Arthroplasty(Left) utilizing [employer] journey 2 patient matched total knee arthroplasty size 7 femur 5 tibia 10 polyethylene 32 oval patella- Todd Younger DO Surgeon Todd Younger DO Multi Spindle Operator Jatinder ELAINE Estimated Blood Loss 5 Findings Consistent with Post-Op Diagnosis Patient presents with severe end-stage tricompartmental degenerative joint disease left knee no response to conservative management intraoperative findings included marginal osteophytes cystic formation subchondral cystic formation eburnated bone moderate to large effusion Specimens Bone and cartilage Complications none Disposition Accompanied Patient To Recovery: No Disposition: Recovery Room Indications Patient presents as being seen evaluate for ongoing planes of pain to the left knee she previous undergone right total knee arthroplasty she is failed times a corticosteroid injections Visco supplementation relative rest activity modification the above intraoperative findings were noted times surgery Description of Procedure After proper identification of the patientAfter proper prepping and draping of the left lower extremity anterior midline incision was made over the region of the extensor extensor mechanism after meticulous hemostasis was obtained and maintained in subcutaneous tissues a medial parapatellar incision was made The patella was subluxed lateralward the medial lateral gutter were cleaned from any hypertrophic synovitis and scar tissue of the distal femoral block was placed and the distal femoral osteotomy cut was made subsequently the chamfers anterior and posterior osteotomy cuts were made utilizing the 4-in-1 block the tibia was subsequently subluxed anteriorward medial and ateral meniscal remnants were excised in their entirety remnants of the anterior and posterior cruciate ligaments were excised in their entirety excellent exposure of the proximal tibia was obtained the tibial osteotomy guide was placed on the proximal tibial osteotomy cut was made once again the knee was irrigated with copious amounts of sterile saline solution the patella was subsequently everted lateralward thickened scar tissue around the patella was removed the patella was subsequently cut utilizing a freehand technique and was drilled prepared for final preparation and placement of patella socially flexion-extension gaps were checked and the equal and symmetric trials were placed to the appropriate femoral and tibial trials with poly-spacer being placed for equal flexion and extension gaps and full range of motion including extension to 0 and flexion to 140 the trial components after having been taken to recovery range of motion was subsequently removed meticulous hemostasis was obtained and maintained subsequently a knee block injection of joint cocktail including ropivacaine 0.5% 150 mg. Bupivacaine 0.5% epinephrine 1-200,030 mL's toradol 30 mg dexamethasone 4 mg ketamine 10 mg clonidine 100 micrograms normal saline solution 30 mg was infiltrated into the soft tissues of the posterior knee medial lateral gutters and periosteal synovium special attention was paid to protect neurovascular structures at all times subsequently trial components having been removed the knee was irrigated with sterile saline solution. debris was removed the proximal tibia was subsequently prepared and was made ready for the placement of the tibial component tibial component was also cemented and tamped into position the femoral component was subsequently placed and cemented in the position the patellar component was subsequently cemented in position because hemostasis once again obtained and maintained wound having been thoroughly irrigated with debridement and debridement lavage was performed as well as a medial parapatellar incision closed with #1 Vicryl in interrupted fashion subcutaneous was closed with #2 Vicryl skin was closed with skin clips. PA-C was necessary for prepping and drapping as well as wound closure of deep fascia Sub cutaneous tissue and skin and was necessary for the case. A sterile compressive dressing was placed patient was taken to recovery in stable condition of report dictated by Aren I attest to the content of the Intraoperative Record and any orders documented therein. Any exceptions are noted below. I attest to the content of the Intraoperative Record and any orders documented therein. Any exceptions are noted below.
--- NOTE | 2019-10-13 12:25 | XRay Report ---
XR knee LT 1 or 2V routine CLINICAL HISTORY: Surgical Post Op COMPARISON: None. DISCUSSION: There are postsurgical changes of a total left knee arthroplasty and patellar resurfacing . There are overlying skin chino and surgical drains. The femoral tibial components appear well sea tamar. The soft tissues is consistent with recent surgery. There are small clustered calcifications wit hin the medial soft tissues, possibly representing phleboliths. IMPRESSION: Postsurgical changes of a total left knee arthroplasty. ACT 112: Negative or not required by law. Electronically signed by: Vipin Burnham M.D. 10/13/2019 12:24 PM
--- NOTE | 2019-10-13 12:51 | Anesthesiology Progress Note ---
Date of Service October 13, 2019 Anesthesia Post Procedure Vital Signs Vital Signs: Temp Pulse Pulse Resp BP Pulse Ox 10/13/19 12:40 49 L 12 121/57 L 100 10/13/19 12:30 52 L 17 127/61 100 10/13/19 12:20 60 14 139/59 L 100 10/13/19 12:10 61 14 112/60 100 10/13/19 12:00 63 13 111/58 L 100 10/13/19 11:51 36.5 C 69 14 115/63 100 10/13/19 07:30 36.8 C 62 20 158/79 H 98 Pain Intensity Left Knee: Pain Intensity: 1 Transfer of Care Handoff Completed per policy Notes Mental Status: alert / awake / arousable and participated in evaluation Patient Amnestic to Procedure: Yes Nausea / Vomiting: adequately controlled Pain: adequately controlled Airway Patency, RR, SpO2: stable & adequate BP & HR: stable & adequate Hydration State: stable & adequate Neuraxial Anesthesia: was administered and sensory block is resolving Anesthetic Complications: no major complications apparent
[2019-10-13] MEDS ORDERED: NALOXONE HCL 0.4 MG/1 ML VIAL/CARP IV PRN (13:31)
[2019-10-13] MEDS ORDERED: MAGNESIUM HYDROXIDE SUSP 30 ML UDC PO PRN (13:31)
[2019-10-13] MEDS ORDERED: bisacodyL 10 MG SUPP PR PRN (13:31)
[2019-10-13] MEDS ORDERED: HYDROmorphone INJ 1 MG/ML SYRINGE IV PRN (13:31)
[2019-10-13] MEDS ORDERED: ONDANSETRON INJ 2 MG/ML 2 ML VIAL IV PRN (13:31)
[2019-10-13] MEDS ORDERED: METOCLOPRAMIDE HCL INJ 5 MG/ML 2 ML VIAL IV PRN (13:31)
--- NOTE | 2019-10-13 13:54 | Hospitalist Consultation ---
Date of Consultation October 13, 2019 Assessment & Plan (1) Atypical chest pain: Unclear exact etiology as not reproducible on exam but having just had an operation suspect positioning could have started some MSK pain.. Most likely heartburn related. Known to have occasional GERD and lying flat from operation therefore will treat with pantoprazole (she is usually on omeprazole PRN). If ongoing could consider GI cocktail. Since this does not feel like her usual heartburn we will get serial troponins however her EKG is reassuring and there is a low likelihood this represents ACS. (2) Status post left knee replacement: POD #0. Pain management and DVT prophylaxis as per surgical team. No chronic medical issues to manage. Thank you for the consult. We will continue to see the patient given chest pain today. History of Present Illness Attending Physician: Todd Younger, History of Present Illness Lavonne Espinal is a 64 year old female non smoker here for elective left knee arthroplasty which she underwent successfully today. Medicine have been consulted for medical management however patient also having chest pain. Chest pain started when she woke but she cannot remember the time this was, occurred in recovery. Did not tell anyone. Still occurring but progressively getting better. Mild ache, severity 2/10, no radiation, no worse on palpation, worse on inspiration. EKG sinus bradycardia 50bpm with no ischemic changes although V6 has significant artifact. Allergies Allergy/AdvReac Type Severity Reaction Status Date / Time oxycodone Allergy Intermediate Hives Verified 10/13/19 07:53 naproxen [From Aleve] Allergy Mild Rash Verified 10/13/19 07:53 hydrocodone AdvReac Depression Verified 10/13/19 07:53 Home Medications Home Medications Medication Instructions Recorded Confirmed Type furosemide 20 mg PO DAILY PRN 02/09/19 10/13/19 History magnesium 250 mg PO QPM 02/09/19 10/13/19 History omeprazole 20 mg PO DAILY PRN 02/09/19 10/13/19 History diclofenac sodium [Voltaren] 2 g TOPICAL QID PRN 09/02/19 10/13/19 History estradiol 1 g VAGINAL 2XWK 09/02/19 10/13/19 History Patient History Medical History History of palpitations EVALUATED BY PCP, EKG/HOLTER MONITOR/ECHO ALL UNREMARKABLE Obesity Osteoarthritis Prolapsed bladder WEARS PESARY Surgical History Family history of reaction to anesthesia SON-PONV History of arthroscopy RT KNEE History of bilateral tubal ligation History of colonoscopy History of esophagogastroduodenoscopy (EGD) History of left oophorectomy History of tonsillectomy History of total knee replacement RT Nausea and vomiting after administration of anesthetic agent Family History (Updated 09/02/19 @ 12:28 by Viviana Velez RN) Unknown Hypertension Mother Diabetes Grandfather (Maternal) Diabetes Grandmother (Maternal) Diabetes Social History Preferred Language: German Communication Ability: Effective Forensic Dna Analyst Required: No Beliefs That Will Affect Care: None marital status: Current Living Situation: Spouse Feels Safe at Home: Yes Safety Concerns: Feels Safe At This Time Smoking Status: Never smoker Do You Dip or Chew Tobacco: No ; Second Hand Exposure: No ; Tobacco Cessation Education Requested by Patient: No Hx Alcohol Use: No Hx Substance Use: No Review of Systems Review of Systems: All systems reviewed & are unremarkable except as noted in HPI & below Physical Exam Constitutional: well developed and well nourished; no acute distress Eyes: + anicteric sclerae; normal pupil size ENMT: external ear and nose normal, oropharynx normal Neck: trachea midline, no thyromegaly Respiratory: normal respiratory effort, lungs clear to auscultation Cardiovascular: RRR, no murmur, no edema Gastrointestinal (Abdomen): normal bowel sounds, soft, nontender, no hepatosplenomegaly Musculoskeletal: no cyanosis or clubbing, extremities motor strength 5/5 Skin: no rashes, warm and dry Neurologic: moves all extremities (unable to move b/l lower extremities when seen due to spinal anesthetic) and awake; not confused Psychiatric: A+Ox3, euthymic affect Results & Data Vital Signs (Past 12 Hours) Vital Signs Temp Pulse Pulse Resp BP Pulse Ox 10/13/19 13:10 56 L 13 120/58 L 100 10/13/19 13:00 51 L 11 L 106/62 100 10/13/19 12:50 36.4 C L 51 L 14 116/59 L 100 10/13/19 12:40 49 L 12 121/57 L 100 10/13/19 12:30 52 L 17 127/61 100 10/13/19 12:20 60 14 139/59 L 100 10/13/19 12:10 61 14 112/60 100 10/13/19 12:00 63 13 111/58 L 100 10/13/19 11:51 36.5 C 69 14 115/63 100 10/13/19 07:30 36.8 C 62 20 158/79 H 98 PG Care Time/CCT Total # of Minutes Spent Total Time Spent with Patient: Total time spent is greater than 50% in coordination of care (as documented) at patient's floor/unit and/or counseling patient:
[2019-10-13] MEDS: SODIUM CHLORIDE 0.9% 1000ML 1,000 ML IV SCH ×2 (14:08→23:56)
--- NOTE | 2019-10-13 14:55 | Electrocardiogram Report ---
Test Reason : Blood Pressure : / mmHG Vent. Rate : 050 BPM Atrial Rate : 050 BPM P-R Int : 156 ms QRS Dur : 078 ms QT Int : 470 ms P-R-T Axes : 026 033 028 degrees QTc Int : 428 ms Sinus bradycardia Low voltage QRS Borderline ECG No previous ECGs available Confirmed by Edilson Hoffmann ([id number]) on 10/13/2019 2:55:32 PM Referred By: Todd Younger Confirmed By:Edilson Hoffmann
[2019-10-13] MEDS: PANTOprazole 40 MG TAB PO SCH (15:30)
[2019-10-13] MEDS: KETOROLAC TROMETHAMINE 15 MG/ML VIAL IV SCH ×2 (15:30→22:47)
[2019-10-13] MEDS: [UNRECOGNIZED DRUG - OTHER] SCH (15:31)
--- NOTE | 2019-10-13 17:41 | XRay Report ---
SINGLE VIEW CHEST CLINICAL HISTORY: Atypical chest pain. FINDINGS: An AP, portable, upright chest radiograph is compared to study dated 02/17/2019. The cardiom ediastinal silhouette is unremarkable. The lungs and pleural spaces are clear. No pneumothorax is see n. The skeletal structures are osteopenic. The bony thorax is grossly intact. Degenerative change is noted in the thoracic spine. IMPRESSION: No active disease in the chest. ACT 112: Negative or not required by law. Electronically signed by: Radhames Vitale M.D. 10/13/2019 5:40 PM
[2019-10-13] MEDS: HYDROCODONE/ACETAMOPHEN 5/325MG TAB PO PRN ×2 (18:22→23:56)
[2019-10-13] MEDS: CEFAZOLIN 2000MG 2,000 MG/15 ML SYR IV SCH (18:22)
[2019-10-13] MEDS: DOCUSATE SODIUM 100 MG CAP PO SCH (20:16)
[2019-10-13] MEDS: ASPIRIN 81 MG ECTAB PO SCH (20:16)
[2019-10-13] MEDS: MAGNESIUM OXIDE 400 MG TAB PO SCH (20:16)
[2019-10-13] MEDS: SENNA 8.6 MG TAB PO SCH (20:16)
[2019-10-13] MEDS ORDERED: CeleBREX 200 MG CAP PO SCH (21:00)
[2019-10-14] MEDS: [UNRECOGNIZED DRUG - OTHER] SCH ×4 (00:43→23:43)
[2019-10-14] MEDS: CEFAZOLIN 2000MG 2,000 MG/15 ML SYR IV SCH (01:37)
[2019-10-14] MEDS: KETOROLAC TROMETHAMINE 15 MG/ML VIAL IV SCH ×2 (04:57→09:25)
[2019-10-14 05:55] LABS: Hematocrit (blood only) 33.7 % (37-47); Hemoglobin 11.1 g/dL (12.0-16.0); Mean Corpuscular Hemoglobin 29.3 pg (25-34); Mean Corpuscular Hgb Conc 32.9 g/dL (32-36); Mean Corpuscular Volume 88.9 fL (80-100); Mean Platelet Volume 9.5 fL (7.4-10.4); Platelet Count 188 K/uL (130-400); RDW Coefficient of Variation 14.4 % (11.5-14.5); RDW Standard Deviation 47.1 fL (36.4-46.3); Red Blood Count 3.79 M/uL (4.2-5.4); White Blood Count 10.35 K/uL (4.8-10.8)
[2019-10-14 06:34] LABS: BUN Creatinine Ratio 23.6 (10-20); Blood Urea Nitrogen 15 mg/dl (7-18); Calcium 8.9 mg/dl (8.5-10.1); Carbon Dioxide 28 mmol/L (21-32); Chloride 110 mmol/L (98-107); Creatinine Clr Calc Pharmacy 110.6 ml/min; Est GFR (African American) 110.3; Est GFR (Non-African American) 95.2; Glucose 142 mg/dl (70-99); Sodium 141 mmol/L (136-145)
[2019-10-14 06:38] LABS: Troponin I < 0.015 ng/ml (0-0.045)
--- NOTE | 2019-10-14 08:04 | Anesthesiology Progress Note ---
Date of Service October 14, 2019 Anesthesia Post Procedure Vital Signs Vital Signs: Temp Pulse Pulse Resp BP Pulse Ox 10/14/19 07:37 36.9 C 57 L 18 136/79 98 10/14/19 03:14 36.8 C 74 16 125/62 97 10/13/19 22:50 36.9 C 66 16 125/72 97 10/13/19 20:10 36.5 C 62 16 115/69 95 10/13/19 16:20 36.9 C 70 16 108/70 95 10/13/19 15:40 36.6 C 70 16 132/87 98 10/13/19 14:13 36.7 C 60 17 120/69 100 10/13/19 13:45 36.8 C 62 17 130/74 100 10/13/19 13:10 56 L 13 120/58 L 100 10/13/19 13:00 51 L 11 L 106/62 100 10/13/19 12:50 36.4 C L 51 L 14 116/59 L 100 10/13/19 12:40 49 L 12 121/57 L 100 10/13/19 12:30 52 L 17 127/61 100 10/13/19 12:20 60 14 139/59 L 100 10/13/19 12:10 61 14 112/60 100 10/13/19 12:00 63 13 111/58 L 100 10/13/19 11:51 36.5 C 69 14 115/63 100 Pain Intensity Left Knee: Pain Intensity: 3 Notes Mental Status: alert / awake / arousable and participated in evaluation Patient Amnestic to Procedure: Yes Nausea / Vomiting: adequately controlled Pain: adequately controlled Airway Patency, RR, SpO2: stable & adequate BP & HR: stable & adequate Hydration State: stable & adequate Neuraxial Anesthesia: was administered and sensory block resolved Anesthetic Complications: no major complications apparent and Pt Satisfied with anesthetic care
--- NOTE | 2019-10-14 08:26 | Orthopedic Progress Note ---
Date of Service October 14, 2019 Assessment & Plan (1) Osteoarthritis of left knee: Postop day 1 status post left total knee arthroplasty. PT/OT protocols. Weightbearing as tolerated. DVT prophylaxis with aspirin, SCDs, NICO hose. Pain management with hydrocodone and hydromorphone as well as low-dose Toradol. Numbness in the lower extremity likely due to preoperative nerve blocks as well as intraoperative nerve block injection. Continue to follow. DC planning-patient is planning for home health services upon discharge. Subjective Postop day 1 status post left total knee arthroplasty Patient is sitting up in her chair at the bedside. She has some concerns due to numbness down her leg to the foot. She states that yesterday she was unable to dorsiflex the foot however that has now resolved. She states that the numbness on top of the foot is resolving as well. She continues to have some numbness over the anterior portion of her lower extremity up to the knee and a little bit involving the lower thigh. I discussed with her the amount of blocks that were given and she should start seeing some reduction in her numbness as the day progresses. She also has concerns for lower extremity swelling of which she has often times in the past. We discussed strategies for helping with her lower extremity swelling if it occurs. She denies any shortness of breath, chest pain, lightheadedness. Pain is controlled. She has no other complaints at this time. Physical Exam Physical Exam: Dressings are clean, dry, and intact. Calves are soft and nontender. He has some decreased sensation over the anterior compartments of her lower extremity. She states that the numbness on the dorsum of the foot is resolving and she has good dorsiflexion and plantarflexion strength of the left foot. Hemovac drain drained 125 mL's from the previous shift. Results & Data Vital Signs (Past 12 Hours) Vital Signs Temp Pulse Resp BP Pulse Ox 10/14/19 07:37 36.9 C 57 L 18 136/79 98 10/14/19 03:14 36.8 C 74 16 125/62 97 10/13/19 22:50 36.9 C 66 16 125/72 97 Laboratory Results Laboratory Results WBC 10.35 K/uL (4.8-10.8) 10/14/19 05:23 RBC 3.79 M/uL (4.2-5.4) L 10/14/19 05:23 Hgb 11.1 g/dL (12.0-16.0) L 10/14/19 05:23 Hct 33.7 % (37-47) L 10/14/19 05:23 MCV 88.9 fL (80-100) 10/14/19 05:23 MCH 29.3 pg (25-34) 10/14/19 05:23 MCHC 32.9 g/dL (32-36) 10/14/19 05:23 RDW Std Deviation 47.1 fL (36.4-46.3) H 10/14/19 05:23 RDW Coeff of William 14.4 % (11.5-14.5) 10/14/19 05:23 Plt Count 188 K/uL (130-400) 10/14/19 05:23 MPV 9.5 fL (7.4-10.4) 10/14/19 05:23 Immature Gran % (Auto) 0.0 % 09/04/19 13:50 Neut % (Auto) 62.4 % 09/04/19 13:50 Lymph % (Auto) 25.3 % 09/04/19 13:50 [place] % (Auto) 8.2 % 09/04/19 13:50 Eos % (Auto) 3.1 % 09/04/19 13:50 Baso % (Auto) 1.0 % 09/04/19 13:50 Immature Gran # (Auto) 0.00 K/uL (0.00-0.02) 09/04/19 13:50 Neut # (Auto) 3.06 K/uL (1.4-6.5) 09/04/19 13:50 Lymph # (Auto) 1.24 K/uL (1.2-3.4) 09/04/19 13:50 [place] # (Auto) 0.40 K/uL (0.11-0.59) 09/04/19 13:50 Eos # (Auto) 0.15 K/uL (0-0.5) 09/04/19 13:50 Baso # (Auto) 0.05 K/uL (0-0.2) 09/04/19 13:50 PT 10.5 Seconds (9.0-12.0) 09/04/19 13:50 INR 1.0 (0.9-1.1) 09/04/19 13:50 APTT 26.5 Seconds (21.0-31.0) 09/04/19 13:50 PTT Ratio 1.0 09/04/19 13:50 Sodium 141 mmol/L (136-145) 10/14/19 05:23 Potassium 4.0 mmol/L (3.5-5.1) 10/14/19 05:23 Chloride 110 mmol/L (98-107) H 10/14/19 05:23 Carbon Dioxide 28 mmol/L (21-32) 10/14/19 05:23 Anion Gap 3.0 (3-11) 10/14/19 05:23 BUN 15 mg/dl (7-18) 10/14/19 05:23 Creatinine 0.65 mg/dl (0.6-1.2) 10/14/19 05:23 Est Cr Clr Drug Dosing 110.6 ml/min 10/14/19 05:23 Est GFR ( Amer) 110.3 10/14/19 05:23 Est GFR (Non-Af Amer) 95.2 10/14/19 05:23 BUN/Creatinine Ratio 23.6 (10-20) H 10/14/19 05:23 Glucose 142 mg/dl (70-99) H 10/14/19 05:23 Estimat Average Glucose 114 mg/dl 09/04/19 13:50 Hemoglobin A1c 5.6 % (4.5-5.6) 09/04/19 13:50 Calcium 8.9 mg/dl (8.5-10.1) 10/14/19 05:23 Troponin I < 0.015 ng/ml (0-0.045) 10/14/19 05:23 Albumin 3.5 gm/dl (3.4-5.0) 09/04/19 13:50 Urine Color Yellow 09/04/19 Unknown Urine Appearance Clear (Clear) 09/04/19 Unknown Urine pH 6.5 (4.5-7.5) 09/04/19 Unknown Ur Specific [place] 1.019 (1.000-1.030) 09/04/19 Unknown Urine Protein Negative (Negative) 09/04/19 Unknown Urine Glucose (UA) Negative (Negative) 09/04/19 Unknown Urine Ketones 1+ (Negative) H 09/04/19 Unknown Urine Blood Negative (Negative) 09/04/19 Unknown Urine Nitrite Negative (Negative) 09/04/19 Unknown Urine Bilirubin Negative (Negative) 09/04/19 Unknown Urine Urobilinogen Negative (Negative) 09/04/19 Unknown Ur Leukocyte Esterase Negative (Negative) 09/04/19 Unknown Blood Type B Positive 09/04/19 13:50 Antibody Screen NEGATIVE 09/04/19 13:50
[2019-10-14] MEDS: MULTIVITAMIN TAB PO SCH (08:39)
[2019-10-14] MEDS: DOCUSATE SODIUM 100 MG CAP PO SCH ×2 (08:39→20:04)
[2019-10-14] MEDS: PANTOprazole 40 MG TAB PO SCH (08:39)
[2019-10-14] MEDS: ASPIRIN 81 MG ECTAB PO SCH ×2 (08:39→20:03)
[2019-10-14] MEDS: HYDROCODONE/ACETAMOPHEN 5/325MG TAB PO PRN ×3 (11:01→21:02)
--- NOTE | 2019-10-14 14:36 | Hospitalist Progress Note ---
Date of Service October 14, 2019 Assessment & Plan (1) Atypical chest pain: * Resolved - most likely MSK in nature, given reproducibility and resolution of pain. No cardiac history. * Given pantoprazole last evening for hx GERD symptoms, but may continue on home medication at discharge * Troponin negative x 3. EKG with Sinus Bradycardia. * Unclear exact etiology as not reproducible on exam but having just had an operation suspect positioning could have started some MSK pain.. (2) Status post left knee replacement: * POD #1 s/p LEFT TKA with Dr. Younger. EBL 5cc. * PT/OT/Pain management/DVT prophylaxis as per surgical team. * H/h 13.9/42.5 pre op, currently stable at 11.1/33.7 * Hemovac with total output 630cc since surgery * No chronic medical issues D/C per primary team. Thank you for the consult. Medicine to sign off. Please call with any questions or concerns. Supervising Physician Co-Signing Physician Notes PA Supervision Note: I did not personally see or examine the patient today, but I verified all [place] points of CEHLE Chen's assessment and plan with the following exceptions/additions: None Subjective Decreased numbness of anterior and medial aspect of left leg. Increased pain, but oral pain medication decreases this to a "dull ache". States she was able to work with therapy. Passing gas. Tolerating diet without difficulty. No recurrence of any chest pain or pain with inspiration since last night. She states it was located left anterior chest and was reproducible when she pressed on it last night. She states she also had some lower extremity edema, which she takes lasix for prn at home. She states that has completely resolved, and she avoids "[place] vegetables" to prevent edema. Denies any fever, chills, chest pain, shortness of breath, abdominal pain, n/v/d/c, dysuria. She states she would like to go home later today if the drainage is decreased and able to be pulled, with plans for outpatient physical therapy. If not, she hopes to leave in the morning. Review of Systems Review of Systems: All systems reviewed & are unremarkable except as noted in HPI & below Constitutional: no fever and no chills Eyes: no eye pain and no problem reported Ear, Nose, Mouth, Throat: no sore throat and no dysphagia Respiratory: no cough and no dyspnea Cardiovascular: + edema (improved to baseline); no chest pain and no palpitations Gastrointestinal: no abdominal pain, no nausea and no vomiting Genitourinary: no dysuria and no urinary frequency Physical Exam Constitutional: WD/WN, vitals as above Eyes: + anicteric sclerae and PERRL ENMT: external ear and nose normal, oropharynx normal Neck: trachea midline, no thyromegaly Respiratory: normal respiratory effort, lungs clear to auscultation Cardiovascular: Rate/Rhythm: regular rhythm and + bradycardic Heart Sounds: normal S1 and normal S2; no murmur Gastrointestinal (Abdomen): normal bowel sounds, soft, nontender, no hepatosplenomegaly Musculoskeletal: no cyanosis or clubbing, extremities motor strength 5/5 Hemovac to left knee- 75cc bloody drainage. dressing c/d/i. Strength 4/5 left LE with dorsiflexion Skin: no rashes, warm and dry Neurologic: NVI dt, dp pulses 2+ bilaterally Psychiatric: A+Ox3, euthymic affect Lymphatic: no cervical or axillary lymphadenopathy Results & Data Vital Signs (Past 12 Hours) Vital Signs Temp Pulse Resp BP Pulse Ox 10/14/19 07:37 36.9 C 57 L 18 136/79 98 10/14/19 03:14 36.8 C 74 16 125/62 97 Laboratory Results 10/14/19 10/14/19 10/14/19 Range/Units 05:23 05:23 05:23 WBC 10.35 (4.8-10.8) K/uL RBC 3.79 L (4.2-5.4) M/uL Hgb 11.1 L (12.0-16.0) g/dL Hct 33.7 L (37-47) % MCV 88.9 (80-100) fL MCH 29.3 (25-34) pg MCHC 32.9 (32-36) g/dL RDW Std Deviation 47.1 H (36.4-46.3) fL RDW Coeff of William 14.4 (11.5-14.5) % Plt Count 188 (130-400) K/uL MPV 9.5 (7.4-10.4) fL Sodium 141 (136-145) mmol/L Potassium 4.0 (3.5-5.1) mmol/L Chloride 110 H (98-107) mmol/L Carbon Dioxide 28 (21-32) mmol/L Anion Gap 3.0 (3-11) BUN 15 (7-18) mg/dl Creatinine 0.65 (0.6-1.2) mg/dl Est Cr Clr Drug Dosing 110.6 ml/min Est GFR ( Amer) 110.3 Est GFR (Non-Af Amer) 95.2 BUN/Creatinine Ratio 23.6 H (10-20) Glucose 142 H (70-99) mg/dl Calcium 8.9 (8.5-10.1) mg/dl Troponin I < 0.015 (0-0.045) ng/ml Hepatitis C Ab Screen Neg (Neg) 10/13/19 10/13/19 Range/Units 20:00 14:05 WBC (4.8-10.8) K/uL RBC (4.2-5.4) M/uL Hgb (12.0-16.0) g/dL Hct (37-47) % MCV (80-100) fL MCH (25-34) pg MCHC (32-36) g/dL RDW Std Deviation (36.4-46.3) fL RDW Coeff of William (11.5-14.5) % Plt Count (130-400) K/uL MPV (7.4-10.4) fL Sodium (136-145) mmol/L Potassium (3.5-5.1) mmol/L Chloride (98-107) mmol/L Carbon Dioxide (21-32) mmol/L Anion Gap (3-11) BUN (7-18) mg/dl Creatinine (0.6-1.2) mg/dl Est Cr Clr Drug Dosing ml/min Est GFR ( Amer) Est GFR (Non-Af Amer) BUN/Creatinine Ratio (10-20) Glucose (70-99) mg/dl Calcium (8.5-10.1) mg/dl Troponin I < 0.015 < 0.015 (0-0.045) ng/ml Hepatitis C Ab Screen (Neg) PG Care Time/CCT Total # of Minutes Spent Total Time Spent with Patient: Total time spent is greater than 50% in coordination of care (as documented) at patient's floor/unit and/or counseling patient:
[2019-10-14] MEDS: CeleBREX 200 MG CAP PO SCH ×2 (16:09→22:14)
[2019-10-14] MEDS: ACETAMINOPHEN 325 MG TAB PO PRN ×2 (19:01→23:57)
[2019-10-14] MEDS: MAGNESIUM OXIDE 400 MG TAB PO SCH (20:03)
[2019-10-14] MEDS: SENNA 8.6 MG TAB PO SCH (20:04)
[2019-10-15] MEDS: HYDROCODONE/ACETAMOPHEN 5/325MG TAB PO PRN ×2 (03:26→07:32)
[2019-10-15] MEDS: [UNRECOGNIZED DRUG - OTHER] SCH (07:34)
[2019-10-15] MEDS: DOCUSATE SODIUM 100 MG CAP PO SCH (08:08)
[2019-10-15] MEDS: ASPIRIN 81 MG ECTAB PO SCH (08:08)
[2019-10-15] MEDS: CeleBREX 200 MG CAP PO SCH (08:08)
[2019-10-15] MEDS: PANTOprazole 40 MG TAB PO SCH (08:09)
[2019-10-15] MEDS: MULTIVITAMIN TAB PO SCH (08:09)
--- NOTE | 2019-10-15 09:41 | Orthopedic Progress Note ---
Date of Service October 15, 2019 Assessment & Plan (1) Osteoarthritis of left knee: Postop day 2 status post left total knee arthroplasty. PT/OT protocols. Weightbearing as tolerated. DVT prophylaxis with aspirin, SCDs, NICO hose. Pain management Numbness in the lower extremity likely due to preoperative nerve blocks as well as intraoperative nerve block injection resolving. DC planning-patient is planning for outpatient PT after discharge. Discharge for today. Subjective POD#2 left TKA. Seen sitting up in bedside chair. Doing well this morning, pain is controlled. some concern about swelling, reassurance given. Numbness she was having is improved and seems to be resolving. No other complaints. Review of Systems Review of Systems: All systems reviewed & are unremarkable except as noted in HPI & below Physical Exam Physical Exam: Left knee Prevena is c/d/i, no calf tenderness. Good dorsiflexion, distally n/v status and sensation intact. Results & Data Vital Signs (Past 12 Hours) Vital Signs Temp Pulse Pulse Resp BP Pulse Ox 10/15/19 06:56 37.1 C 68 16 128/75 99 10/14/19 23:50 37 C 67 18 132/67 96
--- NOTE | 2019-10-15 18:50 | Discharge Summary ---
Date of Service date of discharge: October 15, 2019 date of Admission: 10-13-19 Admission HPI Per Admitting Provider Ms Espinal is a 64 year old female who complains of left knee pain, presents for pre-op prior to a left total knee replacement at [facility]. She presents with pain and stiffness on the left side. She states that the symptoms have been chronic non-traumatic. The symptoms occur constantly with intermittent worsening. Currently the patient states that the symptoms are moderate. The pain is described as aching and sharp. She rates her current pain as 5/10. The symptoms are aggravated by daily activities, ascending stairs, descending stairs, first steps while awake, jumping, kneeling, movement, walking and standing. she has had prior cortisone injections as well as visco without relief. Principal Diagnosis left knee arthritis Discharge Exam Vital Signs Temp 37.1 C 10/15/19 06:56 Pulse 68 10/15/19 06:56 Resp 16 10/15/19 06:56 BP 128/75 10/15/19 06:56 Pulse Ox 99 10/15/19 06:56 Intake & Output 10/14/19 10/15/19 10/15/19 18:59 06:59 18:59 Intake Total 440 / 1140 700 / 1140 Output Total 525 / 525 Balance -85 / 615 700 / 615 Weight 99.33 kg Intake: Oral 440 / 1140 700 / 1140 Output: Urine 350 / 350 Drain Output 175 / 175 Left Knee Hemovac 175 / 175 Other: # Unmeasured Voids 1 1 Constitutional WD/WN, vitals as above no acute distress Musculoskeletal left knee: NVDI, calf SNT, negative kermit sign. DP palpable, able to wiggle toes/ankle movement without difficulty. dressing clean dry and intact. expected post-operative bruising noted. Discharge Data Allergies Allergy/AdvReac Type Severity Reaction Status Date / Time oxycodone Allergy Intermediate Hives Verified 10/13/19 07:53 naproxen [From Aleve] Allergy Mild Rash Verified 10/13/19 07:53 hydrocodone AdvReac Depression Verified 10/13/19 07:53 Consultations 10/13/19 13:31 Consult Case Management - Discharge Planning Routine 10/13/19 13:32 Consult Hospitalist Routine Procedures Performed Operation Date: 10/13/19 09:55 Actual Procedures p Left Total Knee Arthroplasty(Left) - Todd Younger DO Ordered Studies 10/13/19 05:00 US - OR guided needle placemen Routine Hospital Course (1) Osteoarthritis of left knee: Postop day 2 status post left total knee arthroplasty. PT/OT protocols. Weightbearing as tolerated. DVT prophylaxis with aspirin, SCDs, NICO hose. Pain management Numbness in the lower extremity likely due to preoperative nerve blocks as well as intraoperative nerve block injection resolving. DC planning-patient is planning for outpatient PT after discharge. Discharge for today. Total Time Total Time Spent Total Time Spent (In Minutes): 20 Total Time Includes: Examination of the Patient, Discharge Planning and Medication Reconciliation Discharge Plan Discharge Items Patient Disposition: Home - Self-Care Reason For Visit: Unilateral Primary Osteoarthritis, Left Knee Discharge Diagnosis: Left knee osteoarthritis Activity: Per Instructions section Weightbearing: Full weightbearing Non-emergency contact: Surgeon Call non-emergency contact if: your pain is not controlled, your temperature is above 101.5, your wound has increased redness and your wound has increased drainage Follow-up/Referrals: Joanne Bledsoe DO [Primary Care Provider] - Diet: Regular Addtl Attending Provider Instructions: ACTIVITY RECOMMENDATIONS: SELF CARE INSTRUCTIONS AFTER TOTAL KNEE REPLACEMENT A. You may need to continue a physical therapy program after discharge from the hospital. There are several options available to you. Your doctor will assist you in selecting the best one for you. 1. An out-patient facility 2 to 3 times a week for therapy or home therapy. 2. Continue working on all exercises taught to you in the hospital. Your goals should be to increase bending of your knee to 90 degrees and beyond and to fully straighten your knee. B. You may progress at your own pace from walking with a walker or crutches to a cane; then to no assistive devices. C. Make walking a part of your daily routine. Be up as much as comfortable with rest periods throughout the day. Rest with leg elevation is very important. Use the ice wrap frequently for the first 3-4 weeks. D. There are no restrictions on activities. You may ride in a car, shop, participate in law office manager and all social activities. E. Wear the long elastic stockings (NICO hose) 20 hours a day for 2 weeks after surgery. They can be removed several times a day for laundering and for a bath. F. You may shower, no tub baths until cleared by your doctor. SPECIAL CARE INSTRUCTIONS: VERY IMPORTANT TO READ AND REVIEW A. There are a few signs you need to watch for after you are home. Call [facility] if you notice any of the followin. Increased severe knee pain. Some pain is expected especially when you exercise. 2. Increased swelling in your leg or knee; pain or swelling of the calf muscle in either lower leg. 3. Any fluid drainage from the incision. 4. Shortness of breath or chest pain. B. Please call [facility] at if you have any concerns or questions about your operation or recovery. The doctor or his nurse will return your call promptly. C. You must take antibiotics before dental work, bladder, bowel or other surgery. Your doctor will provide you with a permanent care to carry describing this precaution. IMPORTANT: * REMEMBER TO TAKE ASPIRIN, 81 MG, TWICE DAILY FOR 4 WEEKS UNLESS OTHERWISE DIRECTED. THIS IS YOUR BLOOD THINNER. * HIGH RISK PATIENTS MAY BE PRESCRIBED A STRONGER BLOOD THINNER. THIS WILL BE PROVIDED AT DISCHARGE. * CALL IF INCREASED PAIN, REDNESS, DRAINAGE OR FEVER GREATER THAT 101. * WEAR NICO HOSE 20 HOURS PER DAY FOR 2 WEEKS. * YOU MAY HAVE A LARGE BAND-AID LIKE DRESSING (SILVERON). THIS WILL REMAIN ON YOUR INCISION FOR 7 DAYS, THEN CAN BE REMOVED. IF INCISION IS LEAKING THROUGH DRESSING, CALL THE OFFICE . This is a large suction dressing covering your incision. This will help pull any excess drainage from the wound and allow your incision to heal properly. You may shower with this if you can keep the unit outside of the shower. If any bleeding or leakage is noted please call your doctor's office. This will remain on your incision for 7 days and then should be removed. This can be done yourself or by the home nursing staff if applicable. The entire unit is disposable once removed. Once removed, keep incision clean and dry. If redness or drainage is noted, please call your surgeon. FOLLOW UP VISIT: If appointment is not already scheduled: Please call [facility] to make a follow-up appointment for 2 weeks after your surgery at . Pending Studies at Discharge: Yes Studies:: Pathology report Stand-Alone Forms: [facility], Opioid Pain Management, Smoking Cessation Medications and DC Order Prescriptions: New celecoxib [Celebrex] 200 mg Capsule 200 mg PO BID Qty: 60 RF: 0 aspirin [Ecotrin Low Strength] 81 mg Tablet,Delayed Release (Dr/Ec) 81 mg PO BID Qty: 60 RF: 0 hydrocodone-acetaminophen [Qulin] 5-325 mg Tablet 1 - 2 tab PO .Q4H-6H MDD 6 PRN (Reason: pain) Qty: 30 RF: 0 cefadroxil 500 mg capsule 500 mg PO BID Qty: 14 RF: 0 Continued furosemide 40 mg Tablet 20 mg PO DAILY PRN (Reason: Edema) RF: 0 omeprazole 20 mg Capsule,Delayed Release(Dr/Ec) 20 mg PO DAILY PRN (Reason: GERD) RF: 0 magnesium 250 mg Tablet 250 mg PO QPM RF: 0 estradiol 0.01 % (0.1 mg/gram) Cream 1 g VAGINAL 2XWK RF: 0 Discontinued diclofenac sodium [Voltaren] 1 % Gel 2 g TOPICAL QID PRN (Reason: Pain) RF: 0 Discharge Orders: Discharge Order (Routine); Ordered 10/15/19 Ordered By: Luis Gustafson/Other Patient Handouts: Surgery Prevent DVT After Admission Data Admit Date/Time: 10/13/19 11:55 Attending Provider: Todd Younger Admit Provider: Todd Younger Primary Care Provider: Joanne Bledsoe Other Providers: Ana Akins Other Interventions: Discharge Summary Assessment (RN) Last Done: 10/15/19 10:13 DC Date/Time DO NOT enter until pt leaves facility: 10/15/19 11:30
== END 2019-10-15 11:30 | disposition home or self-care (01) | DRG 470 ==
LOC: ASU 07:20 → 3E 11:55